=== PATIENT | male | born 1995 | race Caucasian/White ===

== ENCOUNTER → 2018-08-28 | Outpatient (CLI) | payer BC ==
[~2018-08-28] MED LIST: AMOX-362 PO; CLAR-1 PO; OMEP-137 PO
[2018-08-28 10:49] LABS: PLATELET COUNT, AUTOMATED 195 K/uL (150-450)
== END ==
LOC: LAB 10:31
PROVIDERS: ATTEND Nurse Practitioner Primary Care
DX: R10.12 Left upper quadrant pain (principal)
CPT/HCPCS: 36415; 82040; 82150; 82247; 82310; 82374; 82435; 82565; 82947; 83690; 84075; 84132; 84155; 84295; 84450; 84460; 84520; 85025; 86677

== ENCOUNTER → 2018-09-16 | Outpatient (CLI) | payer BC ==
[~2018-09-16] MED LIST changes: +IOPAMIDOL 61% 75 ML INFUS BTL 75 ML ONE
--- NOTE | 2018-09-16 10:35 | RADIOLOGY IMAGING REPORT ---
FACILITY: [facility] [place] PATIENT NAME: Sergio Hunter : 1995 MR: [id number] V: [id number] EXAM DATE: ORDERING PHYSICIAN: DIANNE MCGRAW TECHNOLOGIST: Location: [facility] [place] Patient: Sergio Hunter : 1995 Visit/Account:[id number] Date of Sevice: 09/16/2018 CT ABDOMEN PELVIS W/ CON HISTORY: Left upper quadrant pain TECHNIQUE: CT abdomen and pelvis 100 cc of Isovue 370 IV. One of the following dose optimization te chniques was utilized in the performance of this exam: automated exposure control; adjustment of the mA and/or kV according to the patient's size; or use of an iterative reconstruction technique. Speci fic details can be referenced in the facility's radiology CT exam operational policy. COMPARISON: None. FINDINGS: Liver/gallbladder: The liver demonstrates normal enhancement. Gallbladder is unremarkable. Spleen: Normal. Adrenals: Normal. Pancreas: Normal enhancement without evidence of mass. Kidneys/: The right and left kidney demonstrate normal enhancement without evidence of hydronephro sis or mass. Both ureters are normal. Pelvis: Urinary bladder is normal. GI: There is no focal abnormality in the small bowel or colon. Vessels/spaces/nodes: Negative. Bones/soft tissues: There are no lytic or blastic bone lesions. Soft tissues are normal. Visualized lung bases: Clear. IMPRESSION: Normal CT abdomen and pelvis. Specifically, no cause for patient's left upper quadrant pain is identi fied. Report Dictated By: Blayne Hernandez at 09/16/2018 10:29 AM Report E-Signed By: Blayne Hernandez at 09/16/2018 10:32 AM WSN:[id number]
== END ==
LOC: CT 01:08
PROVIDERS: ATTEND Nurse Practitioner Primary Care
DX: R10.12 Left upper quadrant pain (principal)
CPT/HCPCS: 74177; Q9967